=== PATIENT | female | born 1955 | race Caucasian/White ===

== ENCOUNTER 2017-05-08 01:31 | Inpatient (IN) | payer OTHER ==
[2017-05-08] MEDS ORDERED: Pantoprazole 40 MG VIAL ONE (02:10)
[2017-05-08 03:50] LABS: Troponin I 0.014 ng/mL (< 0.028)
[2017-05-08 04:12] VITALS: BMI 28.7
[2017-05-08] MEDS ORDERED: Ondansetron ODT 4 MG TAB PO PRN (04:24)
[2017-05-08] MEDS ORDERED: Ondansetron HCl/PF 4 MG/2 ML Vial IVP PRN (04:24)
[2017-05-08] MEDS ORDERED: Guaifenesin DM 100-10/5 ML UDCUP PO PRN (04:24)
[2017-05-08] MEDS ORDERED: Acetaminophen 325 MG TAB PO PRN (04:24)
[2017-05-08] MEDS ORDERED: hydrALAZINE 20 MG/ML VIAL SLOW IVP PRN (04:46)
[2017-05-08] MEDS ORDERED: PROVENTIL INHALER 6.7 G (200 INHALATIONS) INH PRN (04:47)
[2017-05-08] MEDS ORDERED: Promethazine 25 MG TAB PO PRN (04:47)
[2017-05-08] MEDS ORDERED: Methocarbamol 500 MG TAB PO PRN (04:47)
[2017-05-08] MEDS ORDERED: Benzonatate 100 MG CAP PO PRN ×2 (04:47→05:15)
[2017-05-08 05:32] LABS: #Eosinphils 0.1 thou/uL (0.0-0.7); #Lymphocytes 2.4 thou/uL (1.20-3.40); #Monocytes 1.8 thou/uL (0.11-0.59); #Neutrophils 9.2 thou/uL (1.40-6.50); %Basophils 0.2 % (0.0-1.0); %Eosinophils 0.8 % (0.0-10.0); %Lymphocytes 17.4 % (21.0-51.0); %Monocytes 13.2 % (0.0-10.0); %Neutrophils 68.3 % (42.0-75.0); Hemoglobin 11.3 g/dL (12.0-16.0); Mean Corpuscular HGB CONC 33.5 g/dL (32.0-36.0); Mean Corpuscular Hemoglobin 29.8 pg (27.0-31.0); Mean Corpuscular Volume 89.2 fl (81.0-99.0); Mean Platelet Volume 7.6 fL (7.4-10.4); Platelet Count 296 thou/uL (130-400); RBC Distribution Width 12.4 % (11.5-14.5); Red Blood Cell (RBC) Count 3.77 mill/uL (4.20-5.40); White Blood Cell (WBC) Count 13.5 thou/uL (4.8-10.8)
[2017-05-08] MEDS: Sodium Chloride 0.9% 1,000 ML IV SCH ×3 (05:36→17:55)
[2017-05-08 05:45] LABS: Anion Gap 13 mmol/L (10-20); BUN (Urea Nitrogen) 22 mg/dL (9.8-20.1); Calc. Creatinine Clearance 90 mL/min (70-130); Calcium 8.3 mg/dL (7.8-10.44); Carbon Dioxide 22 mmol/L (23-31); Chloride 102 mmol/L (98-107); Estimated GFR-MDRD 72; Glucose 122 mg/dL (80-115); Potassium 4.3 mmol/L (3.5-5.1); Sodium 133 mmol/L (136-145)
--- NOTE | 2017-05-08 05:47 | HP-2 ---
CODE STATUS: DNR. ATTENDING PHYSICIAN: Dr. Andree Moctezuma RESIDENT: Dr. Inga Vanegas HISTORIAN: Self. CHIEF COMPLAINT: Cough. HISTORY OF PRESENT ILLNESS: This is a 61-year-old female with past medical history of hypertension, seizures, COPD, who presents as a transfer from [place] due to vomiting that started last night. The patient reports that she started having upper abdominal pain that she describes as a dull squeezing pain that is worse after eating and is very severe, but would come and go. She also reports that she would have fevers on and off. She also describes a chronic cough from COPD where she has not been p roducing any sputum, but she describes that it has gotten a little bit worse. She reports some chill s and night sweats as well as shortness of breath that she has chronically from COPD, but has also go tten worse in the past few days. The patient takes 800-1600 mg of ibuprofen per day. She has had so me difficulty swallowing solid food lately, but no pain with swallowing. In the ER, she was given Ro cephin 1 gram, azithromycin 500 mg, Protonix 40 mg, 2 liters normal saline, aspirin 324 mg, morphine 4 mg, Zofran 4 mg x2, metoprolol 5 mg IV x2. PAST MEDICAL HISTORY: 1. Hypertension. 2. Seizure disorder, last seizure in 03/2017. 3. Osteoarthritis. 4. Fibromyalgia. 5. COPD. 6. Hepatitis C. 7. Schizophrenia. 8. Gastroesophageal reflux disease. PAST SURGICAL HISTORY: Hysterectomy, appendectomy, tonsillectomy, and cyst removal. ALLERGIES: DEPAKOTE, FOSPHENYTOIN, TEGRETOL, HALDOL, CODEINE, PHENOBARBITAL. MEDICATIONS: 1. Ibuprofen 800 mg t.i.d. p.r.n. 2. Hydrochlorothiazide 25 mg once daily. 3. Protonix 40 mg daily. 4. Atorvastatin 40 mg at bedtime. 5. Methocarbamol 500 mg at bedtime p.r.n. 6. Tizanidine 4 mg q.8h. p.r.n. 7. Lyrica 150 mg b.i.d. 8. Lisinopril 40 mg daily. 9. Cymbalta 60 mg daily. 10. Clonazepam 1 mg t.i.d. 11. Bupropion 150 mg b.i.d. 12. Aspirin 81 mg daily. 13. Albuterol inhaler p.r.n. 14. Mirtazapine 30 mg 2 tabs at bedtime. 15. Promethazine 25 mg p.r.n. 16. Tessalon Perles 200 mg t.i.d. FAMILY HISTORY: Dad had lung cancer. Mom had Alzheimer's. SOCIAL HISTORY: Smokes 4 cigarettes per day since she was 16 years old. Alcohol; reports that she i s a former heavy drinker, drank beer greater than a six pack per day, but has not drank in more than 1 year. Reports that she used to smoke 2-3 joints of marijuana per day for about 6 years, but has qu it. REVIEW OF SYSTEMS: GENERAL: Positive for fever, chills, and appetite change. ENT: Negative for rhinorrhea, sore throat, dysphagia. RESPIRATORY: Positive for cough, shortness of breath. CARDIOVASCULAR: Positive for chest pain. Negative for edema. GI: Positive for nausea, vomiting, abdominal pain. Negative for diarrhea, constipation, GI bleeding . GENITOURINARY: Negative for dysuria, polyuria. SKIN: Negative for rashes, lesions. MUSCULOSKELETAL: Positive for pain or tenderness. NEUROLOGIC: Negative for weakness, numbness, syncope. Positive for seizure last in 03/2017. PHYSICAL EXAMINATION: VITAL SIGNS: Blood pressure 118/80, pulse 103, initially 129, respiratory rate 19, initially 20, tem perature 98.8, pulse ox 95% on 2 liters. Current weight 83.9 kilograms. GENERAL: Alert, oriented x3, no acute distress. Well-nourished, disheveled appearing appropriately interactive. EYES: PERRLA. Extraocular muscles intact. Conjunctivae within normal limits. ENT: Nasal mucosa and oropharynx within normal. Several missing teeth. NECK: Supple, no lymphadenopathy. CARDIOVASCULAR: Tachycardic, regular rhythm, no murmurs, gallops, 2+ radial and pedal pulses. LUNGS: Normal effort, no retractions. Rales in the right middle lung. SKIN: Warm, dry. No cyanosis or lesions. ABDOMEN: Soft, tender to palpation in the midepigastric region. No rebound or guarding. Reports th is is the same pain as the chest pain that she is having, no mass or distention. Normoactive bowel s ounds. EXTREMITIES: No cyanosis or edema. MUSCULOSKELETAL: Structure and tone within normal limits. Normal range of motion. NEUROLOGICAL: No focal deficits. Sensation within normal limits. GCS 15. PSYCHIATRIC: Appropriate. LABORATORY DATA: WBC 16, hemoglobin 13.6, hematocrit 39.7, platelets 432. Sodium 134, potassium 3.8 , chloride 98, CO2 26, BUN 23, creatinine 0.93, GFR 66. Glucose 130, calcium 9.4, AST 20, ALT 31, al kaline phosphatase 91, total bilirubin 0.4, lipase 16, lactic acid 1.3. Troponin less than 0.01. EK G showed sinus tachycardia. IMAGING: Chest x-ray showed patchy left basilar opacities, may represent atelectasis or scarring. A CT angiogram showed no pulmonary embolism, esophagitis, stable precarinal lymph node, mild consolida tion in posterior right upper lobe, increased number of nodules in thyroid. A CT abdomen and pelvis showed multiple left renal hypodensities. Recommend outpatient CT renal mass protocol. ASSESSMENT AND PLAN: This 61-year-old female who presents with: 1. Sepsis secondary to right upper lobe community-acquired pneumonia. The patient failed outpatient therapy with amoxicillin. She was not very compliant with taking this and does not exactly know why she was on it, but says she was on it for a "cough" but was supposed to complete her course 2 days a go. The patient has leukocytosis, tachycardia, status post 2 liters normal saline boluses in the ED. Blood cultures were checked in [place]. We will repeat them here. We will put the patient on norm al saline at 150. We will treat with Rocephin and azithromycin. Check legionella and strep pneumo a ntigens. The patient has a little bit of hyponatremia. This could be due to Legionella. 2. Epigastric pain concerning for peptic ulcer disease. The patient reported chest pain that was ac tually in the mid epigastric region. The patient has a history of GERD, has been taking 800-1600 mg of ibuprofen daily. She denies any hematemesis, but has esophagitis on CT scan. Protonix helped mervat e with the pain. We will trend troponins. Check FOBT. Check stool H. pylori. We will increase her Protonix to b.i.d. The patient may benefit from GI consult and possible EGD. 3. Esophagitis. We will treat with Protonix b.i.d. The patient may benefit from GI consult and EGD . 4. Acute kidney injury versus chronic kidney disease. Appears prerenal status post 2 liters normal saline bolus. We will give normal saline at 150 and recheck. 5. Thyroid nodules have worsened per CT. We will check a TSH. The patient will need outpatient foll owup. 6. Left renal hypodensities, will need outpatient workup with CT renal mass protocol. 7. Chronic obstructive pulmonary disease. We will give the patient DuoNeb p.r.n. and continue her m eds. 8. Hypertension. Continue home medications and p.r.n. hydralazine. 9. Osteoarthritis. We will hold home ibuprofen and give Tylenol as needed. 10. Seizure disorder. The patient is not on any medicines for seizures at this time. We will monit or closely and recommend outpatient followup to be started potentially on a medicine for this. 11. Schizophrenia. We will continue home medications. 12. Tobacco abuse. Nicoderm patch and counseling for cessation. 13. History of marijuana abuse. We will check a UDS and cancer genetic counselor. 14. VTE prophylaxis. Lovenox. DISPOSITION/LENGTH OF HOSPITAL STAY: Admit to tele, likely 2 days. Symptomatic medication will be provided. History and physical exam as well as management discussed with Dr. Moctezuma.
[2017-05-08 06:26] LABS: Amphetamine Not Detected (NotDetected); Barbiturates Screen Not Detected (NotDetected); Benzodiazepine Screen Not Detected (NotDetected); Cocaine Metabolite Screen Not Detected (NotDetected); Medtox Control Line Valid? VALID (VALID); Medtox Reader # READER 1; Methadone Not Detected (NotDetected); Methamphetamine Not Detected (NotDetected); Opiate Screen Detected (NotDetected); Oxycodone Screen Not Detected (NotDetected); Phencyclidine (PCP) Not Detected (NotDetected); THC/Cannabinoid Screen Not Detected (NotDetected); Tricyclic Screen Not Detected (NotDetected)
[2017-05-08 06:27] LABS: Legionella Urinary Ag Negative (Negative); Strep pneumo Urine Ag NEGATIVE (NEGATIVE)
[2017-05-08] MEDS: Nicotine 14 MG PATCH TD SCH (06:40)
[2017-05-08] MEDS: Hydrochlorothiazide 25 MG TAB PO SCH (09:50)
[2017-05-08] MEDS: Pregabalin 75 MG CAP PO SCH ×2 (09:50→21:15)
[2017-05-08] MEDS: DULoxetine 60 MG CAP PO SCH (09:50)
[2017-05-08] MEDS: Lisinopril 20 MG TAB PO SCH (09:51)
[2017-05-08] MEDS: Bupropion 150 MG SR TAB PO SCH ×2 (09:51→21:16)
[2017-05-08] MEDS: clonazePAM 0.5 MG TAB PO SCH ×3 (09:51→21:17)
[2017-05-08] MEDS: Enoxaparin Sodium 40 MG/0.4 ML SYRINGE SC SCH (09:52)
[2017-05-08] MEDS ORDERED: Sucralfate 1 GM TAB PO SCH (12:00)
[2017-05-08] MEDS: tiZANidine HCl 4 MG TAB PO PRN (17:56)
[2017-05-08] MEDS: Azithromycin 500 MG in Sodium Chloride 0.9% 250 ML 250 ML IVPB SCH (21:14)
[2017-05-08] MEDS: cefTRIAXone\\ROCEPHIN 1 GM in Syringe 10 ML SLOW IVP SCH (21:14)
[2017-05-08] MEDS: Mirtazapine 30 MG TAB PO SCH (21:15)
[2017-05-08] MEDS: Sucralfate 1 GM TAB PO SCH (21:16)
[2017-05-08] MEDS: Atorvastatin Calcium 40 MG TAB PO SCH (21:18)
--- NOTE | 2017-05-09 00:35 | HP ---
DATE OF SERVICE: 05/08/2017 CHIEF COMPLAINT: Cough. HISTORY OF PRESENT ILLNESS: The patient is a 61-year-old female with a past medical history of hyper tension, COPD and seizures 2, who presented to an outside ER with vomiting. She noted upper epigastr ic abdominal pain that worsened after eating and to me it was described as dull, burning pain. She h as also had intermittent fevers and a chronic cough that has started to worsen. She endorses shortne ss of breath. The patient was found to have pneumonia in the ER and was started on antibiotics. Upo n further investigation of her abdominal pain, the patient admits to increased NSAID use, specificall y with ibuprofen over the past several weeks. PERTINENT LABS: Include a white blood cell count of 13.5, hemoglobin 11.3, hematocrit 33.6 and plate let count of 296. BMP showed a sodium of 133, potassium 4.3, chloride 102, bicarbonate 22, BUN 22, c reatinine 0.81, glucose 122, and calcium of 8.3. Cardiac enzymes have been negative. UDS is positiv e for opiates, urine legionella, and strep are both negative. IMAGING DATA: Chest x-ray showed left basilar opacities and CTA of the chest showed no PE, noted eso phagitis and consolidation of the posterior right upper lobe. ASSESSMENT AND PLAN: 1. Sepsis secondary to right upper lobe community-acquired pneumonia: The patient had apparently be en on amoxicillin as an outpatient and failed that. She is being treated with Rocephin and azithromy tiara and continue IV fluids. 2. Epigastric pain, suspicious for peptic ulcer disease: The patient will be started on a proton pu mp inhibitor twice a day and we will hold off on nonsteroidal antiinflammatory drugs. We may try Car afate to help with the pain as well. She will likely need an esophagogastroduodenoscopy as an outpat ient. 3. Esophagitis: See above. 4. Acute kidney injury: We will continue IV fluids. The patient already received 2 liters bolus no rmal saline. We will trend her creatinine. For the full history and physical, assessment and plan, please see Dr. Inga Vanegas's dictation. I crum ve discussed the case in detail with her. I have repeated pertinent portions of the physical exam an d history myself.
[2017-05-09 05:15] LABS: #Basophils 0.1 thou/uL (0.0-0.2); #Eosinphils 0.2 thou/uL (0.0-0.7); #Lymphocytes 3.3 thou/uL (1.20-3.40); #Monocytes 0.9 thou/uL (0.11-0.59); #Neutrophils 5.1 thou/uL (1.40-6.50); %Basophils 0.6 % (0.0-1.0); %Eosinophils 1.6 % (0.0-10.0); %Monocytes 9.3 % (0.0-10.0); %Neutrophils 53.4 % (42.0-75.0); Hemoglobin 9.4 g/dL (12.0-16.0); Mean Corpuscular HGB CONC 32.9 g/dL (32.0-36.0); Mean Corpuscular Hemoglobin 29.3 pg (27.0-31.0); Mean Corpuscular Volume 88.8 fl (81.0-99.0); Mean Platelet Volume 7.4 fL (7.4-10.4); Platelet Count 282 thou/uL (130-400); RBC Distribution Width 12.6 % (11.5-14.5); Red Blood Cell (RBC) Count 3.21 mill/uL (4.20-5.40); White Blood Cell (WBC) Count 9.5 thou/uL (4.8-10.8)
[2017-05-09 05:33] LABS: Anion Gap 10 mmol/L (10-20); BUN (Urea Nitrogen) 9 mg/dL (9.8-20.1); Calc. Creatinine Clearance 104 mL/min (70-130); Carbon Dioxide 22 mmol/L (23-31); Chloride 110 mmol/L (98-107); Estimated GFR-MDRD 85; Glucose 92 mg/dL (80-115); Potassium 3.7 mmol/L (3.5-5.1); Sodium 138 mmol/L (136-145)
[2017-05-09] MEDS: Nicotine 14 MG PATCH TD SCH (06:34)
[2017-05-09] MEDS: Sodium Chloride 0.9% 1,000 ML IV SCH ×3 (06:38→15:00)
--- NOTE | 2017-05-09 06:41 | PDOC.FM ---
- Subjective Subjective: Patient states she had a good night. She states her cough is unchanged. She notes that she has not had an urge for a cigarette since being in the hospital. She also notes that her epigastric pain was greatly improved yesterday, but today it has come back. She denies n/v/d, fevers, or chills. She states she does not use oxygen chronically at home and has not been able to go without it in the hospital. No other concerns this morning. - Objective Vital Signs & Weight: Vital Signs (12 hours) Temp Pulse Resp BP Pulse Ox 05/09/17 04:00 98.6 F 115 H 18 105/70 97 05/08/17 20:15 95 05/08/17 20:00 97.6 F 108 H 18 97/61 95 Weight Weight 78.335 kg I&O: 05/07/17 05/08/17 05/09/17 06:59 06:59 06:59 Intake Total 2840 Output Total 500 Balance 2340 Result Diagrams: 05/09/17 04:23 05/09/17 04:23 <Nixon Rosenberg - Last Filed: 05/09/17 07:33> - Objective Vital Signs & Weight: Vital Signs (12 hours) Temp Pulse Resp BP BP Pulse Ox 05/09/17 11:15 97.5 F L 109 H 20 100 05/09/17 11:05 97.9 F 88 20 71/44 L 94 L 05/09/17 09:33 110/71 05/09/17 08:24 97.5 F L 109 H 20 110/71 100 05/09/17 04:00 98.6 F 115 H 18 105/70 97 Weight Weight 79.379 kg I&O: 05/08/17 05/09/17 05/10/17 06:59 06:59 06:59 Intake Total 4820 2706 Output Total 1700 1200 Balance 3120 1506 Result Diagrams: 05/09/17 04:23 05/09/17 04:23 <Andree Moctezuma - Last Filed: 05/09/17 14:02> Phys Exam - Physical Examination Constitutional: NAD HEENT: PERRLA, moist MMs Neck: no nodes, no JVD Respiratory: wheezing present Cardiovascular: RRR, no significant murmur Gastrointestinal: soft, non-tender, no distention, positive bowel sounds Musculoskeletal: no edema, pulses present Neurological: non-focal, normal sensation, moves all 4 limbs Lymphatic: no nodes Psychiatric: normal affect, A&O x 3 Skin: no rash <iNxon Rosenberg - Last Filed: 05/09/17 07:33> Dx/Plan (1) Sepsis due to pneumonia Code(s): J18.9 - PNEUMONIA, UNSPECIFIED ORGANISM; A41.9 - SEPSIS, UNSPECIFIED ORGANISM Status: Acute (2) Epigastric pain Code(s): R10.13 - EPIGASTRIC PAIN Status: Acute (3) Esophagitis Code(s): K20.9 - ESOPHAGITIS, UNSPECIFIED Status: Acute (4) ROGER (acute kidney injury) Code(s): N17.9 - ACUTE KIDNEY FAILURE, UNSPECIFIED Status: Acute (5) Multiple thyroid nodules Code(s): E04.2 - NONTOXIC MULTINODULAR GOITER Status: Acute (6) Renal cyst Code(s): N28.1 - CYST OF KIDNEY, ACQUIRED Status: Acute (7) COPD (chronic obstructive pulmonary disease) Status: Acute (8) HTN (hypertension) Code(s): I10 - ESSENTIAL (PRIMARY) HYPERTENSION Status: Acute (9) Schizophrenia Code(s): F20.9 - SCHIZOPHRENIA, UNSPECIFIED Status: Acute (10) Tobacco abuse Code(s): Z72.0 - TOBACCO USE Status: Acute - Plan Plan: 1. Sepsis due to CAP - Likely resolved - Continue Antibiotics - Continue IVF - Hgb dropped to 9.4 today, likely dilutional, will track 2. Epigastric pain - Likely secondary to PUD - Held NSAIDS - Sucralfate - Protonix BID 3. Esophagitis - Recommend outpatient EGD 4. ROGER - 0.70 today - likely resolved 5. Thyroid nodules - TSH 0.5 - Asymptomatic - Recommend outpatient follow up 6. Left renal cysts - Recommend outpatient follow up 7. COPD - Continue home meds - Duo nebs as needed - oxygen supplementation as needed 8. HTN - Continue home meds - PRNs available 9. Seizure disorder - Not currently medicated - Will monitor for signs/symptoms of seizures 10. Schizophrenia - Continue home meds - Mood stable 11. Tobacco abuse - Recommend cessation - Nicotine patches as needed Disposition: Stable, Will continue current plan of care. <Nixon Rosenberg - Last Filed: 05/09/17 07:33> Attending Addendum - Attending Addendum I personally evaluated the patient and discussed the management with Dr. Rosenberg. I agree with the History, Examination, Assessment and Plan documented above with any addition or exceptions noted below. From a pneumonia standpoint, pt is feeling better. In regards to abdominal pain , carafate and protonix helped yesterday but it is coming back. Will continue carafate today. Counseled on food and meds to avoid with PUD. If pain worsens , may need gi consult as an inpt. <Andree Moctezuma - Last Filed: 05/09/17 14:02>
[2017-05-09] MEDS: Enoxaparin Sodium 40 MG/0.4 ML SYRINGE SC SCH (09:32)
[2017-05-09] MEDS: Sucralfate 1 GM TAB PO SCH ×2 (09:33→22:33)
[2017-05-09] MEDS: Lisinopril 20 MG TAB PO SCH (09:33)
[2017-05-09] MEDS: Bupropion 150 MG SR TAB PO SCH ×2 (09:33→22:34)
[2017-05-09] MEDS: Hydrochlorothiazide 25 MG TAB PO SCH (09:33)
[2017-05-09] MEDS: DULoxetine 60 MG CAP PO SCH (09:33)
[2017-05-09] MEDS: Pregabalin 75 MG CAP PO SCH ×2 (09:34→22:33)
[2017-05-09] MEDS: clonazePAM 0.5 MG TAB PO SCH ×2 (09:35→14:30)
[2017-05-09] MEDS: tiZANidine HCl 4 MG TAB PO PRN (09:45)
[2017-05-09] MEDS ORDERED: Sodium Chloride 0.9% 500 ML IV SCH (12:30)
--- NOTE | 2017-05-09 22:19 | PDOC.FM ---
- Subjective Subjective: No significant overnight events. Patient denies any chest pain or shortness of breath. She has a slight residual cough, but it is much improved from admission. Patient does endorse epigastric pain. She states that the pain has been present for years, but it is slightly worse than it has been in the past. Protonix and sucralfate do seem to help. She has never had an EGD, although she understands the necessity of getting one done. She has an extensive smoking history, as well. Patient requested she be placed back on her daily norco. She states that she takes this at home for pain which is worse in the morning and described as diffuse body pain. Her PMH is significant for fibromyalgia. - Objective MAR Reviewed: Yes Vital Signs & Weight: Vital Signs (12 hours) Temp Pulse Resp BP BP Pulse Ox 05/09/17 16:00 98.6 F 98 20 110/76 100 05/09/17 14:08 95 108/72 05/09/17 11:15 97.5 F L 109 H 20 100 05/09/17 11:05 97.9 F 88 20 71/44 L 94 L Weight Weight 79.379 kg I&O: 05/08/17 05/09/17 05/10/17 06:59 06:59 06:59 Intake Total 4820 5418 Output Total 1700 2700 Balance 3120 2718 Result Diagrams: 05/10/17 04:33 05/10/17 04:33 EKG Reviewed by me: Yes Radiology Reviewed by me: Yes <Lidia Vidales - Last Filed: 05/10/17 09:07> - Objective Vital Signs & Weight: Vital Signs (12 hours) Temp Pulse Resp BP BP BP Pulse Ox 05/10/17 09:12 134/100 H 05/10/17 08:00 96.7 F L 112 H 18 134/100 H 94 L 05/10/17 04:00 97.8 F 105 H 19 118/77 93 L 05/10/17 00:28 92 20 118/87 100 Weight Weight 79.379 kg I&O: 05/09/17 05/10/17 05/11/17 06:59 06:59 06:59 Intake Total 4820 5418 2184 Output Total 1700 2700 3150 Balance 3120 2718 -966 Result Diagrams: 05/10/17 04:33 05/10/17 04:33 <Ender Sarkar Baldomero - Last Filed: 05/10/17 12:05> Phys Exam - Physical Examination Constitutional: NAD HEENT: PERRLA, moist MMs Neck: supple Respiratory: no wheezing, no rales, no rhonchi, clear to auscultation bilateral Cardiovascular: RRR, no significant murmur Gastrointestinal: soft Mildly tender in epigastric region Musculoskeletal: no edema Neurological: non-focal Psychiatric: A&O x 3 Skin: no rash, cap refill <2 seconds <SobeidaLidia - Last Filed: 05/10/17 09:07> Dx/Plan (1) Epigastric pain Code(s): R10.13 - EPIGASTRIC PAIN Status: Acute (2) Sepsis due to pneumonia Code(s): J18.9 - PNEUMONIA, UNSPECIFIED ORGANISM; A41.9 - SEPSIS, UNSPECIFIED ORGANISM Status: Resolved (3) Esophagitis Code(s): K20.9 - ESOPHAGITIS, UNSPECIFIED Status: Acute (4) COPD (chronic obstructive pulmonary disease) Status: Chronic (5) HTN (hypertension) Code(s): I10 - ESSENTIAL (PRIMARY) HYPERTENSION Status: Chronic QualifierTitle: Hypertension type: essential hypertension Qualified Code( s): I10 - Essential (primary) hypertension (6) Multiple thyroid nodules Code(s): E04.2 - NONTOXIC MULTINODULAR GOITER Status: Chronic (7) Renal cyst Code(s): N28.1 - CYST OF KIDNEY, ACQUIRED Status: Chronic (8) Schizophrenia Code(s): F20.9 - SCHIZOPHRENIA, UNSPECIFIED Status: Chronic (9) Tobacco abuse Code(s): Z72.0 - TOBACCO USE Status: Chronic (10) ROGER (acute kidney injury) Code(s): N17.9 - ACUTE KIDNEY FAILURE, UNSPECIFIED Status: Resolved - Plan Plan: 1. Sepsis due to CAP - Resolved - Continue Antibiotics - D/C IVF - Hgb 9.2 today; stable from yesterday 2. Epigastric pain - Likely secondary to PUD - Held NSAIDS - Sucralfate - Protonix BID - Consider GI consult if no improvement in pain; may need inpatient EGD - H. pylori pending - FOBT pending; uncollected - Denies bloody BM 3. Esophagitis - Recommend outpatient EGD - Asymptomatic; found on CT scan 4. ROGER - Resolved 5. Thyroid nodules - TSH 0.5 - Asymptomatic - Recommend outpatient follow up 6. Left renal cysts - Recommend outpatient follow up 7. COPD - Continue home meds - Duo nebs as needed - oxygen supplementation as needed 8. HTN - Continue home meds - PRNs available 9. Seizure disorder - Not currently medicated - Will monitor for signs/symptoms of seizures 10. Schizophrenia - Continue home meds - Mood stable 11. Tobacco abuse - Recommend cessation - Nicotine patches as needed Disposition: Stable, Will continue current plan of care. Consider d/c home today on oral antibiotics and follow up with GI for EGD <Lidia Vidales - Last Filed: 05/10/17 09:07> Attending Addendum - Attending Addendum I personally evaluated the patient and discussed the management with Dr. Vdiales. I agree with the History, Examination, Assessment and Plan documented above with any addition or exceptions noted below. Patient feels well today. Denies shortness of breath or cough due to her treated CAP. She denies any epigastric pain and her Hgb levels have been stable with no symptoms of occult GI bleeding. Advised that she likely needs EGD in outpatient setting but that there is no indication for urgent EGD while in hospital. Will continue Protonix and Carafate outpatient. Hyponatremia resolved. H. pylori results pending and will follow up with her outpatient. If feels well this afternoon, should be stable for discharge home. <Ender Sarkar - Last Filed: 05/10/17 12:05>
[2017-05-09] MEDS: cefTRIAXone\\ROCEPHIN 1 GM in Syringe 10 ML SLOW IVP SCH (22:28)
[2017-05-09] MEDS: Azithromycin 500 MG in Sodium Chloride 0.9% 250 ML 250 ML IVPB SCH (22:34)
[2017-05-09] MEDS: Atorvastatin Calcium 40 MG TAB PO SCH (22:34)
[2017-05-10] MEDS: Sodium Chloride 0.9% 1,000 ML IV SCH ×2 (00:30→03:21)
[2017-05-10] MEDS: clonazePAM 0.5 MG TAB PO SCH ×3 (00:30→14:26)
[2017-05-10] MEDS: Mirtazapine 30 MG TAB PO SCH (00:31)
[2017-05-10 05:18] LABS: #Basophils 0.1 thou/uL (0.0-0.2); #Eosinphils 0.2 thou/uL (0.0-0.7); #Lymphocytes 2.9 thou/uL (1.20-3.40); #Monocytes 0.5 thou/uL (0.11-0.59); #Neutrophils 2.8 thou/uL (1.40-6.50); %Basophils 1.1 % (0.0-1.0); %Eosinophils 3.5 % (0.0-10.0); %Lymphocytes 44.8 % (21.0-51.0); %Monocytes 7.5 % (0.0-10.0); Hemoglobin 9.2 g/dL (12.0-16.0); Mean Corpuscular HGB CONC 32.9 g/dL (32.0-36.0); Mean Corpuscular Hemoglobin 29.3 pg (27.0-31.0); Mean Platelet Volume 7.1 fL (7.4-10.4); Platelet Count 309 thou/uL (130-400); RBC Distribution Width 12.4 % (11.5-14.5); Red Blood Cell (RBC) Count 3.14 mill/uL (4.20-5.40); White Blood Cell (WBC) Count 6.5 thou/uL (4.8-10.8)
[2017-05-10 05:33] LABS: Calcium 8.6 mg/dL (7.8-10.44); Carbon Dioxide 24 mmol/L (23-31); Chloride 115 mmol/L (98-107); Glucose 89 mg/dL (80-115); Potassium 3.9 mmol/L (3.5-5.1); Sodium 144 mmol/L (136-145)
[2017-05-10 05:34] LABS: Calc. Creatinine Clearance 104 mL/min (70-130); Estimated GFR-MDRD 84
[2017-05-10 05:35] LABS: BUN (Urea Nitrogen) 7 mg/dL (9.8-20.1)
[2017-05-10 05:42] LABS: Anion Gap 10 mmol/L (10-20)
[2017-05-10] MEDS: Enoxaparin Sodium 40 MG/0.4 ML SYRINGE SC SCH (09:10)
[2017-05-10] MEDS: Hydrochlorothiazide 25 MG TAB PO SCH (09:11)
[2017-05-10] MEDS: Sucralfate 1 GM TAB PO SCH (09:11)
[2017-05-10] MEDS: Lisinopril 20 MG TAB PO SCH (09:12)
[2017-05-10] MEDS: DULoxetine 60 MG CAP PO SCH (09:13)
[2017-05-10] MEDS: Bupropion 150 MG SR TAB PO SCH (09:13)
[2017-05-10] MEDS: Pregabalin 75 MG CAP PO SCH (09:13)
[2017-05-10] MEDS: Nicotine 14 MG PATCH TD SCH (09:16)
[2017-05-10 15:14] VITALS: BP 115/83; TEMP 97
--- NOTE | 2017-05-11 01:02 | DIS-2 ---
DATE OF ADMISSION: 05/08/2017 DATE OF DISCHARGE: 05/10/2017 ADMITTING ATTENDING: Andree Moctezuma M.D. DISCHARGE ATTENDING: Ender Sarkar MD RESIDENT: Lidia Vidales DO CONSULTATIONS: None. PROCEDURES: 1. CTA showed esophagitis with right upper lobe consolidation and increasing number of thyroid nodul es. 3. CT abdomen and pelvis showed multiple left renal hypodensities. PRIMARY DISCHARGE DIAGNOSES: 1. Sepsis secondary to community-acquired pneumonia. 2. Epigastric pain, possibly secondary to peptic ulcer disease. 3. Esophagitis. SECONDARY DIAGNOSES: 1. Acute kidney injury. 2. Thyroid nodules. 3. Left renal cyst. 4. Chronic obstructive pulmonary disease. 5. Hypertension. 6. Seizure disorder. 7. Schizophrenia. 8. Paresthesia. 9. Tobacco abuse. DISCHARGE MEDICATIONS: 1. Azithromycin 250 mg oral daily for 3 days. 2. Cefdinir 300 mg oral every 12 hours for 3 days. 3. Guaifenesin DM 100/10, 15 mL oral q.4 hours as needed. 4. Pantoprazole 40 mg oral twice daily. 5. Sucralfate 1 gram oral twice daily. 6. Duloxetine 60 mg oral daily. 7. Benzonatate 1 capsule oral 3 times daily as needed. 8. Clonazepam 1 mg oral 3 times daily. 9. Lisinopril 1 tablet oral daily. 10. Methocarbamol 500 mg oral daily. 11. Promethazine 25 mg every 4 hours as needed. 12. Mirtazapine 2 tablets oral at bedtime. 13. Pregabalin 150 mg oral twice daily. 14. Tizanidine 4 mg oral every 8 hours as needed. 15. Hydrochlorothiazide 25 mg 1 tablet oral daily. 16. Bupropion 150 mg oral twice daily. 17. Atorvastatin 40 mg oral daily. 18. Albuterol sulfate 1 puff inhalation every 4 hours as needed. CONTINUED MEDICATIONS: 1. Pantoprazole was increased from 40 mg oral daily to 40 mg p.o. b.i.d. 2. Amoxicillin 500 mg oral twice daily. 3. Ibuprofen 800 mg oral every 8 hours as needed. HISTORY OF PRESENT ILLNESS/HOSPITAL COURSE: This is a 61-year-old female with past medical history o f hypertension, COPD, and seizures, who presented to an outside emergency room with vomiting. She no markus upper epigastric abdominal pain that worsened after eating and it was described as dull and burni ng in nature. She also had intermittent fevers and chronic cough that has started to worsen. The pa jackie endorsed shortness of breath. She was found to have pneumonia in the ER and was started on ant ibiotics. Upon further investigation of abdominal pain, the patient admitted to increased NSAID use, specifically ibuprofen over the past several weeks. She was noted to have a white count of 13.5. C ardiac enzymes were negative. UDS was positive for opiates. Urine legionella and strep were both ne gative. A chest x-ray did show left basilar opacities and CT of the chest showed no pulmonary emboli sm. However, she was noted to have esophagitis and consolidation of the posterior right upper lobe. The patient remained stable throughout the course of her hospital stay. She was treated for communit y-acquired pneumonia with azithromycin and Rocephin. She was transitioned to p.o. antibiotics upon d ischarge, which included cefdinir and azithromycin. From a pulmonary standpoint, the patient's short ness of breath improved and she was not requiring oxygen. Her lungs were clear to auscultation prior to discharge. The patient was noted to have epigastric pain on admission associated with nausea. The patient has h ad epigastric pain for several years for which she has been on Protonix 40 mg once daily. Her sympto ms did appear to be a little worse during this hospitalization; however, Protonix and sucralfate did help to alleviate some of the symptoms. Of note, the patient had been taking nonsteroidal anti-infla mmatory drugs which may have exacerbated the problem and could potentially have lead to peptic ulcer disease. She denied any bloody emesis or bloody diarrhea. FOBT was sent to be collected; however, d ue to the fact that she did not have a bowel movement, this was unable to be collected. H. pylori wa s sent to further investigate potential causes of epigastric pain. The pain did seem well controlled and there is no evidence of acute abdomen. Thus, it was recommended that patient follow up as an ou tpatient to have an EGD performed. This was discussed at length with the patient and she understands the importance of having the study done. She has not had an EGD done in the past, thus that she has never been evaluated for Chiu's esophagus despite the fact that she has been on Protonix for carmella ral years for epigastric pain and reflux. The patient was also noted to have esophagitis on CT. She is asymptomatic in that regard. She is not complaining of difficulty swallowing or pain with swallo wing. However, she would also benefit from an EGD from and esophagitis standpoint as well. The patient did well throughout the course of her hospital stay. She continued to improve in regard to her cough and shortness of breath. As mentioned above, it was recommended that she follow outpati ent to have further evaluation for epigastric pain to include an EGD. The patient was also noted to have thyroid nodules on CT scan which would benefit from further workup as well. The patient will be notified with results of H. pylori test. If necessary, we will start triple antibiotic therapy for treatment of H. pylori. The patient was strongly advised to stay away from nonsteroidal anti-inflamm atory drugs that will exacerbate potential peptic ulcer disease or worsen her epigastric pain. Of note, the patient is on Wellbutrin but has a history of seizure disorder for which she is not curr ently on any medications. It was explained that Wellbutrin can lower the threshold for seizures. Jeff bowser has been on this medication for quite some time and has not had any notable problems. It was recom mended that she follow up with her primary care physician to have a discussion regarding being on Wel lbutrin with her history. DISPOSITION: Stable. DISCHARGE INSTRUCTIONS: 1. Location: Home. 2. Activity: No restrictions. 3. Diet: No restrictions. 4. Followup: The patient is to follow up with her primary care physician within 7 days of discharge to ensure resolution and improvement in symptoms. Additionally, at that time, she should discuss crum ving EGD performed to further evaluate esophagitis and causes of epigastric pain. It is also recomme nded the patient have further evaluation of thyroid nodules as well as further evaluation of renal hy podensities.
[2017-05-11 23:10] LABS: H. pylori IgA ABS Less than 9.0 units (0.0-8.9); H. pylori IgG ABS 0.24 (0.00-0.79); H. pylori IgM ABS Less than 9.0 units (0.0-8.9)
== END 2017-05-10 20:05 | disposition home or self-care (01) | DRG 871 ==
LOC: ERS 01:31 → 2NO 03:46
PROVIDERS: ADMIT Family Medicine; ATTEND Family Medicine
DX: A41.9 Sepsis, unspecified organism (principal); J18.9 Pneumonia, unspecified organism; N17.9 Acute kidney failure, unspecified; E87.1 Hypo-osmolality and hyponatremia; F20.9 Schizophrenia, unspecified; I10 Essential (primary) hypertension; J44.9 Chronic obstructive pulmonary disease, unspecified; G40.909 Epilepsy, unspecified, not intractable, without status epilepticus; M19.90 Unspecified osteoarthritis, unspecified site; M79.7 Fibromyalgia; B19.20 Unspecified viral hepatitis C without hepatic coma; Z88.5 Allergy status to narcotic agent; Z88.8 Allergy status to other drugs, medicaments and biological substances; F17.210 Nicotine dependence, cigarettes, uncomplicated; K21.0 Gastro-esophageal reflux disease with esophagitis; E04.1 Nontoxic single thyroid nodule; N28.1 Cyst of kidney, acquired; K27.9 Peptic ulcer, site unspecified, unspecified as acute or chronic, without hemorrhage or perforation; T39.395A Adverse effect of other nonsteroidal anti-inflammatory drugs [NSAID], initial encounter
CPT/HCPCS: 36415; 80048; 80306; 83605; 84443; 84484; 85025; 87040; 87899; 93005; 96361; 96374; 99406; C9113; J0456; J0696; J1650; J7050

== ENCOUNTER 2017-10-19 16:21 | Emergency (ER) | payer OTHER ==
[2017-10-19 18:44] LABS: Troponin I Less than 0.010 ng/mL (< 0.028)
== END 2017-10-19 21:15 | disposition home or self-care (01) ==
LOC: ERS 16:21
DX: J44.1 Chronic obstructive pulmonary disease with (acute) exacerbation (principal); G40.909 Epilepsy, unspecified, not intractable, without status epilepticus; I10 Essential (primary) hypertension; M19.90 Unspecified osteoarthritis, unspecified site; F20.9 Schizophrenia, unspecified; Z79.899 Other long term (current) drug therapy
CPT/HCPCS: 36415; 93005; J7620